=== PATIENT | female | born 1980 | race Caucasian/White ===

== ENCOUNTER 2025-04-20 22:26 | Emergency (ER) | payer BC, SELFPAY ==
[2025-04-20 22:29] VITALS: BP 140/92
[2025-04-20 22:45] LABS: Hematocrit 42.5 % (37.0-47.0); Hemoglobin 13.9 g/dL (12.0-16.0); Mean Corp Hgb Conc. 32.7 g/dL (33.0-37.0); Mean Corpuscular Volume 92.2 fL (81.0-99.0); Nucleated Red Blood Cells % 0 %; Platelet Count 348 10^3/uL (130-400); Red Cell Dist. Width 12.4 % (11.5-14.5)
[2025-04-20 22:48] LABS: Urine Character Clear (Clear)
[2025-04-20 23:09] LABS: HCG, Serum Qualitative Screen Negative; Urine Squamous Cell >30 /LPF (Few)
[2025-04-20 23:12] LABS: ALT (SGPT) 29 U/L (0-35); AST (SGOT) 29 U/L (14-36); Albumin 4.4 g/dl (3.5-5.0); Alkaline Phosphatase 61 U/L (38-126); Blood Urea Nitrogen 17 mg/dl (7-17); Calcium 9.5 mg/dl (8.4-10.2); Carbon Dioxide 24 mmol/L (22-30); Chloride 108 mmol/L (98-107); Glucose 90 mg/dl (70-99); Lipase 94 U/L (23-300); Potassium 4.3 mmol/L (3.5-5.1); Sodium 136 mmol/L (135-145); Total Protein 7.3 g/dl (6.3-8.2); eGFR > 60.00
--- NOTE | 2025-04-21 00:27 | ED.GENMED ---
History of Present Illness
General
Chief Complaint: Abdominal Pain
Source: patient
Exam Limitations: none
Time Seen by Provider: 04/21/25 00:02
Nursing documentation reviewed up to this point in time: agreed with
History of Present Illness
History of Present Illness:
45-year-old female presenting to the emergency department today with concerns of right lower quadrant abdominal pain. Diagnosed with UTI at urgent care last week and took Bactrim without relief. Ongoing urinary frequency urgency as well as
abdominal pain mainly to the right lower quadrant. Denies any fevers does have nausea no vomiting.
Past History
Past History
ED Past Medical History: Psychiatric (Anxiety depression) and Other (migraines)
Social History
Tobacco: Former smoker
Alcohol: None
Drug: None
Personal: Single
Living: with family
Employment: Employed
Family History
Family History: Hypertension
Review of Systems
Review of Systems
Allergies reviewed?: Yes
All Other Systems: ROS reviewed and negative except as documented in HPI and ROS
Phy Exam
Physical Exam
Physical Exam:
GENERAL: Alert , in no apparent distress
EYE: pupils equal and reactive
NECK: Supple, no significant adenopathy.
ENT: o/p clr, mmm.
CARDIAC: Regular rate and rhythm .
LUNGS: Clear breath sounds bilaterally, no acute respiratory distress, no wheezes/rales/rhonchi
ABDOMEN: Right lower quadrant abdominal pain to palpation.
NEUROLOGICAL: Alert and oriented, no focal neuro deficits
SKIN: Warm and dry, skin intact.
MUSCULOSKELETAL: No edema, well perfused.
PSYCH: Normal and appropriate interaction.
Course
Orders/Labs/Results
Orders:
Orders
04/20/25 22:34
IV Insert/Care/Rem.- Treatment PRN
Test Result ONCE
04/20/25 22:36
Complete Blood Count/With Diff Urgent
Comprehensive Metabolic Panel Urgent
HCG, Serum Qualitative Screen Urgent
Comment: Notify provider if positive test present
Lipase Urgent
Urinalysis Reflex To Culture Urgent
Date Specimen was Collected: 04/20/25
Time Specimen was Collected: 22:34
Urine Microscopic Reflex Cult Urgent
Urine Culture Urgent
ROBINSON Source: U
Specimen Description:
Date Specimen was Collected: 04/20/25
Time Specimen was Collected: 22:34
04/21/25 00:22
CT Abd/Pel (IV only)-DH only Urgent
Comment:
Reason For Exam: rlq pain
Ondansetron Injectable [Zofran] 4 mg IV NOW STA
Abnormal Lab Results
04/20/25
22:36
MCHC 32.7 L g/dL
(33.0-37.0)
Chloride 108 H mmol/L
(98-107)
Ur Occult Blood Reflex 2+ A
(Negative)
Leukocyte Esterase Rfl 1+ A
(Negative)
Urine RBC 3-6 A /HPF
(0-2)
Urine WBC (Reflex) 11-15 A /HPF
(0-5)
Urine Bacteria (Reflex) Few A
(Negative)
Urine Albumin (Reflex) 2+ A
(Neg - Trace)
04/20/25 22:36
04/20/25 22:36
Vital Signs
Initial and Last Documented VS:
Initial Vital Signs
Temp Pulse Resp BP Pulse Ox
97.7 F 62 16 140/92 99
04/20/25 22:29 04/20/25 22:29 04/20/25 22:29 04/20/25 22:29 04/20/25 22:29
Last Documented Vital Signs
Temp Pulse Resp BP Pulse Ox
97.7 F 72 16 122/83 99
04/20/25 22:29 04/21/25 00:45 04/20/25 22:29 04/21/25 00:40 04/21/25 00:41
MDM/Problems Addressed
MDM/Problems Addressed:
45-year-old female presenting to the emergency department today with concerns of right lower quadrant abdominal pain. Reproducible to palpation here. Vital signs normal with a white count CT scan without emergent findings labs unremarkable
urinalysis not convincing of acute UTI. Patient reassessed in no distress stable for discharge.
*Pulse Oximetry
SaO2: 99
Oxygen Mode of Delivery: Room air
Patient hypoxic: no (99)
*Critical Care Note
Total Time (30-74mins, 75-104mins- exclusive of procedures): Not Applicable
ED Attending Note
-
Portions of this chart may have been created with voice recognition software.� Occasional wrong word or��sound alike� substitutions may have occurred due to the inherent limitations of voice recognition software.
Discharge Plan
Departure
Patient Disposition: Home (Routine Discharge)
Date of Disposition: 04/21/25
Time of Disposition: 03:11
Patient with high blood pressure during this ER visit?: No
Condition: Good
Covid-19: Not Applicable
Discharge Problem:
Abdominal pain
Instructions: Abdominal Pain
Prescriptions:
No Action
Botox 200 unit Recon Soln
200 unit IM ONCE
Patient Comments:
every 3 months
Referrals:
Isidoro Ruth MD [Family Provider, Family Practice]
Activity Restrictions/Additional Instructions:
You came to the emergency department today with concerns of abdominal pain. Here had reassuring assessment. Please follow closely as an outpatient. Return for any worsening, new or concerning symptoms.
Interventions
Interventions:
*Risk Screen - Suicide Last Done: 04/20/25 22:29
*General Assessment Last Done: 04/20/25 22:29
*Neglect/Abuse Screening Last Done: 04/20/25 22:29
*ED- Fall Risk Assessment Last Done: 04/20/25 22:29
*ED COVID-19 Vaccine History Last Done: 04/20/25 22:42
*ED Influenza Vaccine History Last Done: 04/20/25 22:29
UQ-Boylgt-Dghlviohxz Assessment Last Done: 04/21/25 00:43
Discharge Date and Time
Print Language: SAO TOMEAN
[2025-04-21 00:40] VITALS: BP 122/83
[2025-04-21 00:41] VITALS: BMI 29.1
[2025-04-21] MEDS: ZOFRAN 4 MG IV (00:46)
[2025-04-21 03:29] VITALS: BP 122/78
== END 2025-04-21 03:30 | disposition home or self-care (01) ==
LOC: EMR 22:26
PROVIDERS: Emergency Medicine; EMERGENCY PHYSICIAN Emergency Medicine; FAMILY PHYSICIAN Family Medicine
DX: R10.31 Right lower quadrant pain (principal); R35.0 Frequency of micturition; Z87.891 Personal history of nicotine dependence; Z87.440 Personal history of urinary (tract) infections
CPT/HCPCS: 99284; 96374; 74177; 80053; 81003; 81015; 83690; 84703; 85025; 87086; Q9967

== ENCOUNTER 2025-05-05 20:51 | Emergency (ER) | payer BC, SELFPAY ==
[2025-05-05 20:58] VITALS: BP 136/80
[2025-05-05 21:27] LABS: Hematocrit 41.7 % (37.0-47.0); Hemoglobin 13.6 g/dL (12.0-16.0); Mean Corp Hgb Conc. 32.6 g/dL (33.0-37.0); Mean Corpuscular Volume 90.7 fL (81.0-99.0); Nucleated Red Blood Cells % 0 %; Platelet Count 394 10^3/uL (130-400); Red Cell Dist. Width 12.8 % (11.5-14.5)
[2025-05-05 21:29] LABS: Urine Character Clear (Clear)
[2025-05-05 21:38] LABS: Urine Squamous Cell >30 /LPF (Few); Urine Urothelial Cell 0-2 /LPF (FEW)
[2025-05-05 21:39] LABS: Urine Red Blood Cell 50-60 /HPF (0-2)
[2025-05-05 21:40] LABS: Urine White Cell 26-30 /HPF (0-5)
[2025-05-05 21:43] LABS: ALT (SGPT) 29 U/L (0-35); AST (SGOT) 28 U/L (14-36); Albumin 4.7 g/dl (3.5-5.0); Alkaline Phosphatase 61 U/L (38-126); Blood Urea Nitrogen 21 mg/dl (7-17); Calcium 10.1 mg/dl (8.4-10.2); Carbon Dioxide 29 mmol/L (22-30); Glucose 107 mg/dl (70-99); HCG, Serum Qualitative Screen Negative; Potassium 4.3 mmol/L (3.5-5.1); Sodium 136 mmol/L (135-145); Total Protein 7.4 g/dl (6.3-8.2); eGFR > 60.00
[2025-05-05 21:51] LABS: Chloride 102 mmol/L (98-107)
== END 2025-05-06 00:04 ==
LOC: EMR 20:51
PROVIDERS: Student in an Organized Health Care Education/Training Program
DX: Z53.21 Procedure and treatment not carried out due to patient leaving prior to being seen by health care provider (principal)
CPT/HCPCS: 80053; 81003; 81015; 84703; 85025; 87086